=== PATIENT | female | born 1980 | race Caucasian/White ===

== ENCOUNTER → 2018-08-19 10:25 | Outpatient (CLI) | payer SELFPAY ==
[2018-08-19 08:36] VITALS: BMI 28.6
[2018-08-21 11:20] LABS: HPV Reflexed? NOT INDICATED
== END ==
PROVIDERS: Referring Provider Family Medicine; Visit Provider Family Medicine
DX: Z12.4 Encounter for screening for malignant neoplasm of cervix (principal); D25.9 Leiomyoma of uterus, unspecified
CPT/HCPCS: 88175; G0145

== ENCOUNTER 2018-10-23 06:18 | Day surgery (SDC) | payer SELFPAY ==
[2018-08-26 10:20] VITALS: BMI 28.6
[2018-10-07 14:38] VITALS: BMI 28.6
[2018-10-23] VITALS (10 sets, daily range): BP systolic 116–154; BP diastolic 73–85; PULSE 57–86; RESP 14–18; TEMP 36.4–37.2; O2SAT 100; BMI 30.8
[2018-10-23 06:47] LABS: Internal QC Validated? YES +Cl - CLEAR BKGD
[2018-10-23 06:48] LABS: Pregnancy, Urine Negative Negative
[2018-10-23 06:56] LABS: Hemoglobin 11.4 g/dl (12.0-15.0); Mean Corp Hgb Conc 31.7 g/gl (32-36); Mean Corpuscular Hgb 23.3 pg (27.0-32.0); Mean Corpuscular Volume 73.6 fL (81-99); Mean Platelet Vol. 8.5 fl (6.2-12.0); Platelet Count 268 K/mm3 (150-450); RBC Distribution Width CV 15.4 % (11.6-14.6); RBC Distribution Width SD 41.3 fl (35.1-43.9); Red Blood Count 4.89 M/mm3 (4.2-5.4); White Blood Count 5.6 K/mm3 (4.4-11.0)
[2018-10-23 06:58] LABS: Scan Indicated on CBC? Y/N NO
[2018-10-23] MEDS: Lactated Ringers 1,000 ML 40 ML IV (07:05)
[2018-10-23 07:06] LABS: Bedside Glucose 89 mg/dL (70-110)
[2018-10-23] MEDS: Magnesium Sulfate 4gm/100mL 4 GM/100 ML IV.SOLN. IV (07:06)
[2018-10-23] MEDS: Gabapentin 600 MG Tablet PO (07:06)
[2018-10-23] MEDS: Acetaminophen 500 MG Tablet 1000 MG PO (07:06)
[2018-10-23] MEDS: Phenazopyridine 95 MG Tablet 190 MG PO (07:07)
[2018-10-23] MEDS: Celecoxib 200 MG Capsule 400 MG PO (07:07)
[2018-10-23] MEDS: Scopolamine 1mg/72hr Patch 1 PATCH TRANSDERM. (07:08)
[2018-10-23] MEDS: Enoxaparin 40 MG/0.4 ML Syringe SC (07:08)
--- NOTE | 2018-10-23 08:02 | OP.PCM_ITS ---
Problem List (1) Leiomyoma of body of uterus Status: Chronic Comment: This patient has leiomyoma that is significantly larger on this exam than it had been on previous examinations. It is symptomatic both because of pelvic pressure and increasing menstrual bleeding. I believe the size is almost doubled in a years time so surgical referral is most certainly appropriate. (2) Chronic back pain Status: Chronic Qualifiers: Report of Operation Date of Procedure: 10/23/18 Pre-Operative Diagnosis: enlarged uterus, fibroids Post-Operative Diagnosis: same extensive scar tissue Surgery/Procedure Performed:: lavh bs cysto Description of Surgical Findings:: extensive bladder abdominal wall adhesions emergency management consultant: Clementine Buchanna Type of Anesthesia:: General Special Medications: none Specimen's removed: uterus tubes Drains: currie Estimated Blood Loss (mL): 100 Fluids Replaced: crystalloid Description of Procedure: Patient received preoperative antibiotics and SCDs were on preoperatively. Patient was taken back to the operating room and placed in the dorsal lithotomy position. General anesthesia was induced and patient was prepped and draped in normal sterile fashion. Uterine manipulator was placed inside the uterus and Currie catheter placed in the bladder. The umbilicus was grasped with towel clamps and an intraumbilical incision was made after injecting with quarter percent Marcaine and a Veress needle entered into the abdomen confirmed to be intra-abdominal with a low opening pressure. Abdomen was insufflated with CO2 gas and the Veress needle removed and the 5 mm trocar was placed under direct visualization without complication. Right and left lower quadrants were transilluminated and injected with quarter percent Marcaine and 5 mm ports placed under direct visualization. Pelvis was well visualized see operative findings for additional information. Bilateral fallopian tubes were identified and transected with the LigaSure device across the mesosalpinx to the level of the utero-ovarian ligament which was also transected with the LigaSure device. The broad ligament was opened up by transecting the round ligament bilaterally and skeletonizing the uterine vessels bilaterally and creating a bladder flap using the LigaSure device. extensive adhesions were encoutnered and taken down bluntly and with the ligasure deviceThe uterine arteries were transected bilaterally with good visualization of the bladder and the ureters were seen to be inferior lateral to the operative area. Attention was then paid to the vaginal portion of the procedure and the cervix was grasped with Luis F clamps and circumferentially injected with dilute vasopressin. A circumferential incision was made and the vaginal mucosa was mobilized off posteriorly and the cul-de-sac entered into sharply and a longneck speculum placed. The anterior cul-de-sac was then identified and entered into sharply. The uterosacral ligaments were clamped cut and suture ligated with 0 Monocryl bilaterally followed by the cardinal ligaments which were clamped cut and suture ligated bilaterally with 0 Monocryl. The uterus serially descended and was removed without difficulty with minimal morcellation. Pelvic sidewall pedicles were checked and noted to have excellent hemostasis. The vaginal mucosa was reapproximated incorporating the posterior peritoneum. This was reapproximated using 0 Vicryl [id number] sutures. Excellent hemostasis was noted. The cystoscopy was then performed and bilateral ureteral strong spray was noted and the bladder was noted to have no abnormality or lesions seen. Currie catheter was replaced and then attention paid to the abdominal portion of the procedure again. The pelvis and cul-de-sac was well visualized and no significant active bleeding noted but some raw areas were seen on the peritoneum and therefore Merle was applied. Pressure was taken down and the areas visualized and noted of excellent hemostasis. All ports were removed under direct visualization without complication and the abdomen was desufflated of air. The instruments removed from the abdomen and the vagina vaginal sweep was negative. Port sites on the abdomen were closed with 4-0 Monocryl interrupted sutures and Steri's and windows were applied. She was awoken and taken recovery in stable condition. Grafts/Implants Used: none - Complications none
--- NOTE | 2018-10-23 08:02 | DCINST_ITS ---
Discharge Diet: No Restrictions Discharge Activity: Return to Normal Activity, May Not Drive, May Shower May resume sexual activity in: 6-8 weeks Call your doctor if your incision/area has: Continuous Slow Oozing, Sudden Increased Bleeding, Increased Pain/ Swelling, Increased Redness, Foul Smelling Discharge Call your doctor if you observe: Fever of 101 or Higher, Inability to urinate, Inability to have a bowel movement, Using more than one pad per hour Allergies/Adverse Reactions: Allergies No Known Allergies Allergy (Verified 10/17/18 10:58) Medications to take at Discharge NK 10/09/17 Primary Care Physician: Jose Brito DO [Primary Care Provider] - Test Results: Test results from this visit will be discussed in further detail at your follow- up appointment, if applicable. Please Follow Up With: Rosanna Meeks MD - [phone]
[2018-10-23] MEDS: Ondansetron 4 MG/2 ML Vial IV (08:10)
--- NOTE | 2018-10-23 08:30 | UT_PTH ---
PATIENT: LOCO JENNINGS [place] [facility] [place][id number] AGE/SX: 38/F ROOM: RE10/23/[address]: Dr. Rosanna Meeks MD : 1980 BED: DIS: 10/23/2018 SPEC #: [id number] RECD: 10/23/18 11:09 STATUS: RADHA DENNIS #: [id number] MIGUEL ANGEL: 10/23/18 08:[address]: Rosanna Meeks DEPT: SURGICAL PATHOLOGY RECD BY: Grady Jolly ENTERED: 10/23/18 13:01 SP TYPE: UTERUS OTHR DR: Dr. Jose Brito, DO Tissues: Uterus, NOS Procedures: Surgery Specimen Level V HEADER OPERATION: ERAS, hysterectomy, lap assisted vaginal, salpingectomy, cysto PRE-OP DIAGNOSIS: Leiomyoma of body of uterus TISSUE SUBMITTED: Uterus MICROSCOPIC DIAGNOSIS Uterus, vaginal hysterectomy and bilateral salpingectomy: Cervix - mild chronic cystic cervicitis. Endometrium - secretory endometrium. Myometrium - intramural leiomyomas (largest measuring 3.5 cm in diameter). Bilateral fallopian tubes - status post occlusion. - Focal hematosalpinx. SJ:mike 10/24/18 MICROSCOPIC DESCRIPTION Slides are reviewed. GROSS DESCRIPTION Received in fixative is one container labeled with the patient's name and designated uterus. The specimen consists of a hysterectomy specimen consisting of uterus with cervix and attached bilateral fallopian tubes. The uterus is previously, partially sectioned. The uterus with cervix weighs 315 gm and measures 15 x 9 x 7 cm. The serosal surface is berrios, glistening. The ectocervical mucosa is unremarkable. The external os is slit-like in contour. The endocervical canal measures 5 cm in length and the endocervical mucosa is berrios, glistening and unremarkable. The triangular endometrial cavity measures 6 cm in length and 3.5 cm in width. The endometrium is berrios, glistening, focally congested and without any mass lesion and measures 0.2 cm in thickness. Sections of the uterine wall reveal multiple intramural nodular masses. The largest mass measures 3.5 cm in diameter. Sections of these masses reveal berrios whorled cut surfaces without areas of hemorrhage, necrosis or cystic degeneration. The uninvolved uterine wall is diffusely thickened and measures up to 4 cm in thickness. The right fallopian tube measures 8 cm in length and up to 1 cm in diameter. The fimbrial end is identified. In the center, this appears to be interrupted consistent with previous tubal occlusion. The portion of fallopian tube proximal to the area of occlusion shows dilated lumen filled with bloody fluid. The lumen measures up to 1 cm in diameter. The left fallopian measures 8 cm in length and up to 1 cm in diameter. The fimbrial end is identified and is interrupted in the middle consistent with previous tubal ligation. The fallopian tube proximal to the occlusion shows focally dilated lumen filled with bloody fluid. [employer] sections are submitted in 11 cassettes as follows: 1 - anterior cervix, 2 - posterior cervix, 3 & 4 - anterior uterine wall, 5 & 6 - posterior uterine wall, 7 - smaller nodular masses, 8 & 9 - largest nodular mass, 10 - right fallopian tube, 11 - left fallopian tube. / EDUARDO:mike 10/23/18 TC:1 CPT: 96530
[2018-10-23] MEDS: Bupivacaine 0.25% 30 ML Vial (08:50)
[2018-10-23] MEDS: Vasopressin 20 UNITS/ML Vial (09:40)
[2018-10-23] MEDS: Ketorolac 30 MG/ML Syringe IV (11:26)
[2018-10-23] MEDS: oxyCODONE 5 MG Tablet PO (12:47)
[2018-10-23 13:12] LABS: Absolute Lymphocyte Count 0.47 X10^3/ul (0.83-4.51); Absolute Neutrophil Count 10.3 X10^3/uL (2.0-7.7); Basophil# 0.01 X10^3/uL; Basophil% 0.1 % (0-1); Eosinophil# 0.01 X10^3/uL; Eosinophils% 0.1 % (0-5); Hematocrit 33.8 % (37-47); Hemoglobin 10.7 g/dl (12.0-15.0); Lymphocyte # 0.47 X10^3/ul (4.0); Lymphocyte % 4.3 % (19-41); Mean Corp Hgb Conc 31.7 g/gl (32-36); Mean Corpuscular Hgb 23.3 pg (27.0-32.0); Mean Corpuscular Volume 73.6 fL (81-99); Mean Platelet Vol. 8.6 fl (6.2-12.0); Monocyte# 0.05 X10^3/uL; Monocyte% 0.5 % (0-10); Neutrophil # 10.31 X10^3/uL (2.7-7.7); Neutrophil % 94.8 % (47-70); Platelet Count 250 K/mm3 (150-450); RBC Distribution Width CV 15.5 % (11.6-14.6); RBC Distribution Width SD 41.5 fl (35.1-43.9); Red Blood Count 4.59 M/mm3 (4.2-5.4); White Blood Count 10.9 K/mm3 (4.4-11.0)
[2018-10-23 13:13] LABS: Differential Indicated SCAN CRITERIA MET; POSITIVE COUNT NO; POSITIVE DIFFERENTIAL YES; POSITIVE MORPHOLOGY NO
[2018-10-23] MEDS: Naproxen 250 MG Tablet PO (15:12)
== END 2018-10-23 17:10 | disposition home or self-care (01) ==
LOC: SDC 06:23 → AC 06:23
PROVIDERS: Family Provider Family Medicine; PCP Family Medicine; Referring Provider Obstetrics & Gynecology; Visit Provider Obstetrics & Gynecology
PROC: 0UT9FZZ Resection of Uterus, Via Natural or Artificial Opening With Percutaneous Endoscopic Assistance (ICD-10-PCS; CPT 58291; principal; 2018-10-23 08:05)
DX: D28.2 Benign neoplasm of uterine tubes and ligaments (principal); N72 Inflammatory disease of cervix uteri; N83.6 Hematosalpinx; G89.29 Other chronic pain; M54.9 Dorsalgia, unspecified
CPT/HCPCS: 58291; 81025; 82962; 85025; 85027; 86850; 86900; 88307; J7120; J2405

== ENCOUNTER → 2019-01-19 09:02 | Outpatient (CLI) | payer SELFPAY ==
[2018-12-26 13:16] VITALS: BMI 30.8
--- NOTE | 2019-01-19 09:05 | BI_ITS ---
MAMMOGRAPHY - BILATERAL DIAGNOSTIC REASON FOR EXAM: Female, 38 years old. Small right breast lump. PERTINENT HISTORY: Non-contributory. TECHNIQUE: Digital bilateral breast edmundo (3D mammographic acquisition) in the CC and MLO projections. 2-D mediolateral oblique (MLO) and craniocaudad (CC) views of both breasts were obtained. CAD: Full Field Digital Mammography with Computer Added Detection was performed. COMPARISON: None. Baseline examination. FINDINGS: Breast Composition: The breasts are heterogeneously dense, which may obscure small masses. There are no dominant masses or suspicious calcifications. No other significant abnormalities are identified. BI/DIAG MAMM W/CAD, BILAT IMPRESSION: Negative diagnostic mammogram. With the patient's history of a palpable abnormality in the right breast, correlation with ultrasound is recommended. ASSESSMENT CATEGORY: BIRADS Category 0: Incomplete. Need additional imaging evaluation. A letter regarding these results will be sent to the patient by the facility within 30 days. Approximately 10% of breast cancers are not detected by mammography. A normal mammogram should not delay biopsy of a clinically suspicious abnormality. Electronically Signed: Wojciech Zhao, at 13:58 EDT , Service support ,
--- NOTE | 2019-01-19 09:48 | US_ITS ---
STUDY: ULTRASOUND BREAST - RIGHT REASON FOR EXAM: Female, 38 years old. Palpable lump in the right breast. TECHNIQUE: Axial and longitudinal images of the RIGHT breast were performed with a high resolution ultrasound transducer. COMPARISON: Comparison is made with prior mammogram done earlier in the day. FINDINGS: RIGHT Breast: The retroareolar region of the breast was examined by ultrasound. No solid or cystic mass lesion is seen. US/Breast Limited Unilateral IMPRESSION: Unremarkable sonographic examination of the retroareolar region of the right breast. ASSESSMENT CATEGORY: BIRADS Category 1: Negative. A letter regarding these results will be sent to the patient by the facility within 30 days. Electronically Signed: Wojciech Zhao, at 11:12 EDT , Service support ,
== END ==
PROVIDERS: Family Provider Family Medicine; PCP Family Medicine; Referring Provider Family Medicine; Visit Provider Family Medicine
DX: N63.10 Unspecified lump in the right breast, unspecified quadrant (principal)
CPT/HCPCS: 76642; 77066

== ENCOUNTER → 2021-01-10 10:50 | Outpatient (CLI) | payer SELFPAY ==
[2020-12-22 14:47] VITALS: BMI 30.8
--- NOTE | 2021-01-10 10:54 | BI_ITS ---
MAMMOGRAPHY - BILATERAL SCREENING 3-D TOMOSYNTHESIS REASON FOR EXAM: Female, 40 years old. fibrocystic breast disease PERTINENT HISTORY: No significant family history. TECHNIQUE: 2-D mammograms and 3-D Tomosynthesis of the breast (s) were performed. CAD was performed. COMPARISON: 01/19/2019 FINDINGS: The breast composition is heterogeneous fibroglandular tissue. Scattered benign calcifications are seen. No dense spiculated masses or suspicious microcalcifications are identified. No architectural distortion is identified. There is no skin thickening or retraction. No significant lymph nodes identified in the axillary areas. There has been no significant change since the prior study. BI/SCRN MAMM (CAD)W/RHEA BILAT IMPRESSION: No mammographic signs of malignancy. Routine yearly mammograms recommended. ASSESSMENT CATEGORY: BIRADS Category 1: Negative. A letter regarding these results will be sent to the patient by the facility within 30 days. FOLLOW UP RECOMMENDATION: Yearly follow up mammogram recommended. (A) Approximately 10% of breast cancers are not detected by mammography. A normal mammogram should not delay biopsy of a clinically suspicious abnormality. Electronically Signed: Ellie Alvarez, at 13:49 EDT Tel , Service support ,
== END ==
PROVIDERS: PCP Family Medicine; Referring Provider Family Medicine; Visit Provider Family Medicine
DX: Z12.31 Encounter for screening mammogram for malignant neoplasm of breast (principal); N60.19 Diffuse cystic mastopathy of unspecified breast
CPT/HCPCS: 77063; 77067

== ENCOUNTER → 2022-05-29 | Outpatient (CLI) | payer SELFPAY ==
--- NOTE | 2022-05-29 08:42 | BI_ITS ---
MAMMOGRAPHY - BILATERAL SCREENING REASON FOR EXAM: Female, 42 years old. Routine annual screening examination. PERTINENT HISTORY: Non-contributory. TECHNIQUE: Digital bilateral breast rhea (3D mammographic acquisition) in the CC and MLO projections. 2-D mediolateral oblique (MLO) and craniocaudad (CC) views of both breasts were obtained. CAD: Full Field Digital Mammography with Computer Added Detection was performed. COMPARISON: Comparison is made with prior study dated the 2020 and 01/19/2019. FINDINGS: Breast Composition: The breasts are heterogeneously dense, which may obscure small masses. There are no dominant masses or suspicious calcifications. No other significant abnormalities are identified. There has been no significant change since the prior study. BI/SCRN MAMM (CAD)W/RHEA BILAT IMPRESSION: Stable bilateral screening mammogram. Yearly follow-up mammogram recommended. (A) ASSESSMENT CATEGORY: BIRADS Category 1: Negative. A letter regarding these results will be sent to the patient by the facility within 30 days. Approximately 10% of breast cancers are not detected by mammography. A normal mammogram should not delay biopsy of a clinically suspicious abnormality. [id number] Electronically Signed: Wojciech Zhao MD at 9:23 EST ,
== END | disposition home or self-care (01) ==
LOC: OPBI 08:28
PROVIDERS: Referring Provider Registered Nurse; Visit Provider Registered Nurse
DX: Z12.31 Encounter for screening mammogram for malignant neoplasm of breast (principal)
CPT/HCPCS: 77063; 77067

== ENCOUNTER → 2023-10-29 | Outpatient (CLI) | payer SELFPAY, OTHER ==
--- NOTE | 2023-10-29 10:09 | BI_ITS ---
MAMMOGRAPHY - BILATERAL SCREENING REASON FOR EXAM: Female, 43 years old. Routine annual screening examination. PERTINENT HISTORY: Non-contributory. TECHNIQUE: Digital bilateral breast rhea (3D mammographic acquisition) in the CC and MLO projections. 2-D mediolateral oblique (MLO) and craniocaudad (CC) views of both breasts were obtained. CAD: Full Field Digital Mammography with Computer Added Detection was performed. COMPARISON: Comparison is made with prior study dated May 29, 2022 and January 10, 2021. FINDINGS: Breast Composition: The breasts are heterogeneously dense, which may obscure small masses. There are no dominant masses or suspicious calcifications. No other significant abnormalities are identified. There has been no significant change since the prior study. BI/SCRN MAMM (CAD)W/RHEA BILAT IMPRESSION: Stable bilateral screening mammogram. Yearly follow-up mammogram recommended. (A) ASSESSMENT CATEGORY: BIRADS Category 1: Negative. A letter regarding these results will be sent to the patient by the facility within 30 days. Approximately 10% of breast cancers are not detected by mammography. A normal mammogram should not delay biopsy of a clinically suspicious abnormality. [id number] Electronically Signed: Wojciech Zhao MD at 11:14 EDT ,
== END | disposition home or self-care (01) ==
PROVIDERS: PCP Family Medicine; Visit Provider Obstetrics & Gynecology
DX: Z12.31 Encounter for screening mammogram for malignant neoplasm of breast (principal)
CPT/HCPCS: 77063; 77067